=== PATIENT | male | born 1965 | race Caucasian/White ===

== ENCOUNTER 2017-07-11 18:59 | Inpatient (IN) | payer OTHER ==
[2017-07-11 20:35] VITALS: BMI 32.3
--- NOTE | 2017-07-11 21:48 | HP ---
CIWA Score - CIWA Score Nausea/Vomitin-No Nausea/No Vomiting Muscle Tremors: 4-Moderate,w/Arms Extend Anxiety: 4-Mod. Anxious/Guarded Paroxysmal Sweats: 3 Orientation: 1-Uncertain about Date Tacttile Disturbances: 0-None Auditory Disturbances: 4-Moderate Hallucination Visual Disturbances: 4-Moderate Hallucinations Headache: 0-None Present Admission ROS BHS - HPI Chief Complaint: SEEKING DETOX FOR ALCOHOLISM Allergies/Adverse Reactions: Allergies Allergy/AdvReac Type Severity Reaction Status Date / Time Shellfish Allergy Verified 08/08/15 05:07 History of Present Illness: 51 Y.O. MALE WITH ALCOHOLISM HERE FOR DETOX. CLIENT WAS REFERRED BY A FRIEND. STATES THIS IS HIS FIRST TIME IN SUBSTANCE ABUSE TXMENT. REPORTS LONGEST CLEAN TIME 6 MONTHS RELAPSING 4 WEEKS AGO. DENIES ANY LEGALS. Exam Limitations: No Limitations - Ebola screening Have you traveled outside of the country in the last 21 days: No Have you had contact with anyone from an Ebola affected area: No Have you been sick,other than usual withdrawal symptoms: No Do you have a fever: No - Review of Systems Constitutional: No Symptoms Reported EENT: reports: No Symptoms Reported Respiratory: reports: No Symptoms reported Cardiac: reports: No Symptoms Reported GI: reports: No Symptoms Reported : reports: No Symptoms Reported Musculoskeletal: reports: No Symptoms Reported Integumentary: reports: No Symptoms Reported Neuro: reports: No Symptoms reported Endocrine: reports: No Symptoms Reported Hematology: reports: No Symptoms Reported Psychiatric: reports: Anxious Other Systems: Reviewed and Negative Patient History - Patient Medical History Hx Anemia: No Hx Asthma: No Hx Chronic Obstructive Pulmonary Disease (COPD): No Hx Cancer: No Hx Cardiac Disorders: No Hx Congestive Heart Failure: No Hx Hypertension: No Hx Hypercholesterolemia: No Hx Pacemaker: No HX Cerebrovascular Accident: No Hx Seizures: No Hx Dementia: No Hx Diabetes: No Hx Gastrointestinal Disorders: Yes (RECTAL BLEEDING, GERD) Hx Liver Disease: Yes (ALCOHOLIC/NON-ALCOLHIC STEATOHEPATITIS) Hx Genitourinary Disorders: No Hx Renal Disease (ESRD): No Hx Thyroid Disease: No Hx Human Immunodeficiency Virus (HIV): No Hx Hepatitis C: No Hx Depression: No Hx Suicide Attempt: No Hx Bipolar Disorder: No Hx Schizophrenia: No Other Medical History: DENIES - Patient Surgical History Past Surgical History: Yes Hx Neurologic Surgery: No Hx Cataract Extraction: No Hx Cardiac Surgery: No Hx Lung Surgery: No Hx Breast Surgery: No Hx Breast Biopsy: No Hx Abdominal Surgery: No Hx Appendectomy: No Hx Cholecystectomy: No Hx Genitourinary Surgery: No Hx Section: No Hx Orthopedic Surgery: No Hx Hysterectomy: No Other Surgical History: TONSILLECTOMY Anesthesia Reaction: No - PPD History Previous Implant?: Yes Documented Results: Negative w/o proof Implanted On Prior [facility] Admission?: No PPD to be Administered?: Yes - Smoking Cessation Smoking history: Former smoker Have you smoked in the past 12 months: Yes Aproximately how many cigarettes per day: 4 (WEEKLY; ) Cigars Per Day: 0 Hx Chewing Tobacco Use: No Initiated information on smoking cessation: Yes 'Breaking Loose' booklet given: 07/11/17 - Substance & Tx. History Hx Alcohol Use: Yes Hx Substance Use: Yes Substance Use Type: Alcohol, Marijuana Hx Substance Use Treatment: No - Substances Abused BEER/ WHISKEY Route: Oral Frequency: 3-6 times per week Amount used: 2-SIX PACKS/ 1/2 PINT Age of first use: 12 Date of Last Use: 07/10/17 THC Route: Smoking Frequency: 3-6 times per week Amount used: 3 JOINTS Age of first use: 15 Date of Last Use: 07/10/17 Family Disease History - Family Disease History Family History: Denies Family Disease History: CA: Mother (SMALL INTESTINE; ) Admission Physical Exam BHS - Vital Signs Vital Signs: Vital Signs - 24 hr 07/11/17 20:33 Temperature 96.4 F L Pulse Rate 97 H Respiratory 18 Rate Blood Pressure 151/96 - Physical General Appearance: Yes: Appropriately Dressed, Mild Distress, Anxious HEENTM: Yes: EOMI, Normocephalic, JHOANA, Pharynx Normal Respiratory: Yes: Chest Non-Tender, Lungs Clear, Normal Breath Sounds, No Respiratory Distress, No Accessory Muscle Use Neck: Yes: No masses,lesions,Nodules, Supple, Trachea in good position Breast: Yes: Breast Exam Deferred Cardiology: Yes: Regular Rhythm, S1, S2, Tachycardia Abdominal: Yes: Normal Bowel Sounds, Non Tender, Soft, Protuberent Genitourinary: Yes: Within Normal Limits Back: Yes: Normal Inspection Musculoskeletal: Yes: full range of Motion, Gait Steady Extremities: Yes: Normal Capillary Refill, Normal Range of Motion, Non-Tender, Tremors Neurological: Yes: Alert, Motor Strength 5/5 Integumentary: Yes: Dry, Warm, Other (FLUSHED FACE) Lymphatic: Yes: Within Normal Limits - Diagnostic (1) Alcohol dependence with uncomplicated withdrawal Current Visit: Yes Status: Chronic (2) Nicotine dependence Current Visit: Yes Status: Chronic Qualifiers: Nicotine product type: cigarettes Substance use status: uncomplicated Qualified Code(s): F17.210 - Nicotine dependence, cigarettes, uncomplicated Cleared for Admission [facility] - Detox or Rehab [facility] Level of Care: Medically Managed Detox Regimen/Protocol: Librium [facility] Breath Alcohol Content Breath Alcohol Content: 0 Urine Drug Screen - Results Drug Screen Negative: No Urine Drug Screen Results: THC-Marijuana
[2017-07-11] MEDS ORDERED: guaiFENesin/D-METHORPHAN HB 10 ML UNIT-DOSE CUPS PO PRN (21:58)
[2017-07-11] MEDS ORDERED: IBUPROFEN 400 MG TABLET (FP) PO PRN (21:58)
[2017-07-11] MEDS ORDERED: ACETAMINOPHEN 325 MG TABLET (FP) PO PRN (21:58)
[2017-07-11] MEDS ORDERED: MAG HYDROX/AL HYDROX/SIMETH 30 ML UNIT-DOSE CUP PO PRN (21:58)
[2017-07-11] MEDS ORDERED: MAGNESIUM CITRATE 300 ML BOTTLE PO PRN (21:58)
[2017-07-11] MEDS ORDERED: P-EPHED 60MG/TRIPROLIDI 2.5MG TABLET PO PRN (21:58)
[2017-07-11] MEDS ORDERED: MAGNESIUM HYDROX 2400MG/30ML ORAL SUSPENSION 30 ML CUP PO PRN (21:58)
[2017-07-11] MEDS ORDERED: chlordiazePOXIDE HCL 25 MG CAPSULE PO PRN (21:58)
[2017-07-11] MEDS ORDERED: MENTHOL/PHENOL 1 EACH UD MM PRN (21:58)
[2017-07-11] MEDS ORDERED: NICOTINE POLACRILEX 4 MG GUM BC PRN (21:58)
[2017-07-11] MEDS ORDERED: LOPERAMIDE HCL 2 MG CAPSULE PO PRN (21:58)
[2017-07-11] MEDS: THIAMINE HCL 100 MG TABLET (FP) PO SCH (23:38)
[2017-07-11] MEDS: chlordiazePOXIDE HCL 25 MG CAPSULE PO SCH (23:38)
[2017-07-11] MEDS: hydrOXYzine PAMOATE 50 MG CAPSULE (FP) PO PRN (23:39)
[2017-07-12] MEDS: chlordiazePOXIDE HCL 25 MG CAPSULE PO SCH ×4 (05:35→22:13)
[2017-07-12 10:16] LABS: MCH 30.7 pg (25.7-33.7); MCHC 33.8 g/dl (32.0-35.9); MEAN CELL VOLUME 90.8 fl (80-96); MEAN PLT VOLUME 7.8 fl (7.5-11.1); PLATELET COUNT 328 K/MM3 (134-434); RDW 12.8 % (11.9-15.9); WHITE BLOOD COUNT 7.9 K/mm3 (4.0-10.0)
[2017-07-12 10:23] LABS: ALBUMIN 3.5 g/dl (3.4-5.0); BILIRUBIN,TOTAL 0.3 mg/dL (0.2-1.0); SGOT/AST 18 U/L (15-37); SGPT/ALT 23 U/L (12-78); TOT PROT 6.3 g/dl (6.4-8.2)
[2017-07-12] MEDS: PRENATAL VITAMINS W/ FOLIC ACID TABLET (FP) PO SCH (10:25)
[2017-07-12 10:26] LABS: ALK PHOS 107 U/L (45-117); ANION GAP 8 (8-16); CALCIUM 8.6 mg/dL (8.5-10.1); CO2 28 mmol/L (21-32); CREATININE 0.8 mg/dL (0.7-1.3); GLUCOSE,RANDOM 84 mg/dL (74-106)
[2017-07-12 10:48] LABS: URINE APPEARANCE CLEAR; URINE BILIRUBIN NEGATIVE (NEGATIVE); URINE BLOOD NEGATIVE (NEGATIVE); URINE COLOR LT. YELLOW; URINE GLUCOSE (UA) NEGATIVE (NEGATIVE); URINE KETONE 1+ (NEGATIVE); URINE NITRITE NEGATIVE (NEGATIVE); URINE PROTEIN NEGATIVE (NEGATIVE); URINE UROBILINOGEN 0.2 mg/dL (0.2-1.0)
--- NOTE | 2017-07-12 11:41 | PN ---
[facility] CIWA - CIWA Score Nausea/Vomitin-No Nausea/No Vomiting Muscle Tremors: 3 Anxiety: 5 Agitation: 1-Slight > Activity Paroxysmal Sweats: 3 Orientation: 2-Disoriented Date<2 days Tacttile Disturbances: 2-Mild Itch/Numbness/Burn Auditory Disturbances: 0-None Visual Disturbances: 3-Moderate Sensitivity Headache: 0-None Present CIWA-Ar Total Score: 19 BHS Progress Note (SOAP) Subjective: Sweating, Fatigue, Tremors, Diarrhea, Body Aches. Objective: PT. A & O X 2 (UNCERTAIN ABOUT CURRENT DAY / DATE). NO ACUTE DISTRESS. 07/12/17 11:38 Vital Signs Temperature 96.3 F L 07/12/17 09:20 Pulse Rate 84 07/12/17 09:20 Respiratory Rate 18 07/12/17 09:20 Blood Pressure 127/84 07/12/17 09:20 O2 Sat by Pulse Oximetry (%) Laboratory Tests 07/11/17 07/12/17 07/12/17 00:00 07:00 07:00 WBC 7.9 RBC 4.78 Hgb 14.7 Hct 43.4 MCV 90.8 MCH 30.7 MCHC 33.8 RDW 12.8 Plt Count 328 MPV 7.8 Sodium 138 Potassium 3.7 Chloride 102 Carbon Dioxide 28 Anion Gap 8 BUN 8 Creatinine 0.8 Creat Clearance w eGFR > 60 Random Glucose 84 Calcium 8.6 Total Bilirubin 0.3 AST 18 ALT 23 Alkaline Phosphatase 107 Total Protein 6.3 L Albumin 3.5 Urine Color Lt. yellow Urine Appearance Clear Urine pH 7.0 Ur Specific [place] 1.025 Urine Protein Negative Urine Glucose (UA) Negative Urine Ketones 1+ H Urine Blood Negative Urine Nitrite Negative Urine Bilirubin Negative Urine Urobilinogen 0.2 LABS NOTED. RPR RESULT PENDING. 07/12/17 11:40 Assessment: 07/12/17 11:39 WITHDRAWAL SYMPTOMS. Plan: CONTINUE DETOX. INCREASE DAILY PO FLUID INTAKE. ENCOURAGE AMBULATION.
--- NOTE | 2017-07-12 12:49 | EKG ---
Test Reason : Blood Pressure : / mmHG Vent. Rate : 085 BPM Atrial Rate : 085 BPM P-R Int : 174 ms QRS Dur : 106 ms QT Int : 372 ms P-R-T Axes : 063 016 064 degrees QTc Int : 442 ms NORMAL SINUS RHYTHM NORMAL ECG NO PREVIOUS ECGS AVAILABLE Confirmed by ODESSA SOUSA, NYDIA ([id number]) on 07/12/2017 12:48:54 PM Referred By: Confirmed By:NYDIA SAXENA MD
--- NOTE | 2017-07-12 18:10 | CONSULT ---
[facility] Psychiatric Consult - Data Date of interview: 07/12/17 Admission source: [facility] Identifying data: First admission to [facility] for this 51 y/o male from [facility] ancestry seeking detox treatment on for alcohol dependence.Patient is ,a father of one,domiciled and employed. Substance Abuse History: Confirmed by patient in this interview.See [facility] report for details. Smoking history: Former smoker. Have you smoked in the past 12 months: Yes. Aproximately how many cigarettes per day: 4 (WEEKLY; ). Cigars Per Day: 0. Hx Chewing Tobacco Use: No. Initiated information on smoking cessation: Yes. 'Breaking Loose' booklet given: 07/11/17. - Substance & Tx. History. Hx Alcohol Use: Yes. Hx Substance Use: Yes. Substance Use Type: Alcohol, Marijuana. Hx Substance Use Treatment: No. - Substances Abused. BEER/ WHISKEY. Route: Oral. Frequency: 3-6 times per week. Amount used: 2- SIX PACKS/ 1/2 PINT. Age of first use: 12. Date of Last Use: 07/10/17. THC. Route: Smoking. Frequency: 3-6 times per week. Amount used: 3 JOINTS. Age of first use: 15. Date of Last Use: 07/10/17 Medical History: Steatosis,GERD and a history of tonsillectomy. Psychiatric History: Patient denies. Physical/Sexual Abuse/Trauma History: Patient denies. Additional Comment: Urine Drug Screen Results: THC-Marijuana.Noted. Mental Status Exam - Mental Status Exam Alert and Oriented to: Time, Place, Person Cognitive Function: Good Patient Appearance: Well Groomed Mood: Anxious, Hopeful Affect: Mood Congruent Patient Behavior: Fatigued, Appropriate, Cooperative Speech Pattern: Clear, Appropriate Voice Loudness: Normal Thought Process: Intact, Goal Oriented Thought Disorder: Not Present Hallucinations: Denies Suicidal Ideation: Denies Homicidal Ideation: Denies Insight/Judgement: Poor Sleep: Well Appetite: Good Muscle strength/Tone: Normal Gait/Station: Normal Psychiatric Findings - Problem List ([place] 1, 2,3) (1) Alcohol dependence with uncomplicated withdrawal Current Visit: Yes Status: Acute (2) Marihuana dependence Current Visit: Yes Status: Acute (3) Nicotine dependence Current Visit: Yes Status: Acute Qualifiers: Nicotine product type: cigarettes Substance use status: uncomplicated Qualified Code(s): F17.210 - Nicotine dependence, cigarettes, uncomplicated - Initial Treatment Plan Initial Treatment Plan: Psychoeducation.Detoxification.Support.Observation.
[2017-07-12 20:23] LABS: URINE LEUK ESTERASE Negative (NEGATIVE)
[2017-07-12] MEDS: THIAMINE HCL 100 MG TABLET (FP) PO SCH (22:13)
[2017-07-12] MEDS: hydrOXYzine PAMOATE 50 MG CAPSULE (FP) PO PRN (23:24)
[2017-07-13] MEDS: chlordiazePOXIDE HCL 25 MG CAPSULE PO SCH ×3 (05:32→17:22)
[2017-07-13] MEDS: PRENATAL VITAMINS W/ FOLIC ACID TABLET (FP) PO SCH (10:42)
--- NOTE | 2017-07-13 13:54 | PN ---
[facility] CIWA - CIWA Score Nausea/Vomitin-No Nausea/No Vomiting Muscle Tremors: 3 Anxiety: 5 Agitation: 4-Moderately Restless Paroxysmal Sweats: 3 Orientation: 0-Oriented Tacttile Disturbances: 2-Mild Itch/Numbness/Burn Auditory Disturbances: 0-None Visual Disturbances: 0-None Headache: 0-None Present CIWA-Ar Total Score: 17 BHS Progress Note (SOAP) Subjective: Tremors, anxious, Interrupted Sleep, Sweating. Patient reports that he feels anxious and "paranoid that medical receptionist biller are coming to get him." PATIENT DENIES AUDITORY / VISUAL HALLUCINATIONS. PATIENT DENIES SI / HI. Objective: PT. A & O X 3, OBSERVED AMBULATING ON UNIT. NO ACUTE DISTRESS. 07/13/17 13:52 Vital Signs Temperature 96.4 F L 07/13/17 13:23 Pulse Rate 77 07/13/17 13:23 Respiratory Rate 8 L 07/13/17 13:23 Blood Pressure 119/84 07/13/17 13:23 O2 Sat by Pulse Oximetry (%) Laboratory Tests 07/11/17 07/12/17 07/12/17 00:00 07:00 07:00 WBC 7.9 RBC 4.78 Hgb 14.7 Hct 43.4 MCV 90.8 MCH 30.7 MCHC 33.8 RDW 12.8 Plt Count 328 MPV 7.8 Sodium 138 Potassium 3.7 Chloride 102 Carbon Dioxide 28 Anion Gap 8 BUN 8 Creatinine 0.8 Creat Clearance w eGFR > 60 Random Glucose 84 Calcium 8.6 Total Bilirubin 0.3 AST 18 ALT 23 Alkaline Phosphatase 107 Total Protein 6.3 L Albumin 3.5 Urine Color Lt. yellow Urine Appearance Clear Urine pH 7.0 Ur Specific [place] 1.025 Urine Protein Negative Urine Glucose (UA) Negative Urine Ketones 1+ H Urine Blood Negative Urine Nitrite Negative Urine Bilirubin Negative Urine Urobilinogen 0.2 Ur Leukocyte Esterase Negative RPR Titer 07/12/17 07:00 WBC RBC Hgb Hct MCV MCH MCHC RDW Plt Count MPV Sodium Potassium Chloride Carbon Dioxide Anion Gap BUN Creatinine Creat Clearance w eGFR Random Glucose Calcium Total Bilirubin AST ALT Alkaline Phosphatase Total Protein Albumin Urine Color Urine Appearance Urine pH Ur Specific [place] Urine Protein Urine Glucose (UA) Urine Ketones Urine Blood Urine Nitrite Urine Bilirubin Urine Urobilinogen Ur Leukocyte Esterase RPR Titer Nonreactive LABS NOTED. Assessment: 07/13/17 13:53 WITHDRAWAL SYMPTOMS. Plan: CONTINUE DETOX. PSYCH CONSULT ORDERED FOR PATIENT.
--- NOTE | 2017-07-13 14:52 | PN ---
Psychiatric Progress Note Vital Signs: Vital Signs Period Temp Pulse Resp BP Sys/Jacobo Pulse Ox Last 24 Hr 96.1 F-98.1 F 61-106 8-18 105-140/65-86 Date of Session: 07/13/17 Chief Complaint:: "i'm paranoid." HPI: Notified by nursing staff to assess patient for paranoid ideation. chart reviewed. Pt. evaulated. Pt. reports thoughts of parania but stated it is due to withdrawal from beny. States it has happened to him in the past. Denies suicidal and homicidal ideation. No medication intervention needed at this time. Current Medications: Active Medications Generic Name Dose Route Start Last Admin Trade Name Freq PRN Reason Stop Dose Admin Acetaminophen 650 mg 07/11/17 21:58 Tylenol - PO Q4H PRN FEVER OR PAIN Al Hydroxide/Mg Hydroxide 30 ml 07/11/17 21:58 Mylanta Oral Suspension - PO Q6H PRN DYSPEPSIA Chlordiazepoxide HCl 25 mg 07/12/17 23:00 07/13/17 10:41 Librium - PO 07/13/17 17:01 25 mg [id number] STEVE Administration Chlordiazepoxide HCl 15 mg 07/13/17 23:00 Librium - PO 07/14/17 17:01 [id number] STEVE Chlordiazepoxide HCl 25 mg 07/11/17 21:58 Librium - PO 07/14/17 21:57 Q4H PRN WITHDRAWAL(CONT SUBST) Chlordiazepoxide HCl 10 mg 07/14/17 23:00 Librium - PO 07/15/17 17:01 [id number] STEVE Eucalyptus/Menthol/Phenol/Sorbitol 1 each 07/11/17 21:58 Cepastat Lozenge - MM Q4H PRN SORE THROAT Guaifenesin 10 ml 07/11/17 21:58 Robitussin Dm - PO Q6H PRN COUGH Hydroxyzine Pamoate 50 mg 07/11/17 21:58 07/12/17 23:24 Vistaril - PO 50 mg Q4H PRN Administration AGITATION Ibuprofen 400 mg 07/11/17 21:58 Motrin - PO Q6H PRN SEVERE PAIN Loperamide HCl 4 mg 07/11/17 21:58 Imodium - PO Q6H PRN DIARRHEA Magnesium Citrate 300 ml 07/11/17 21:58 Citroma - PO Q48H PRN CONSTIPATION Magnesium Hydroxide 30 ml 07/11/17 21:58 Milk Of Magnesia - PO DAILY PRN CONSTIPATION Nicotine Polacrilex 4 mg 07/11/17 21:58 Nicorette Gum - BC Q2H PRN NICOTINE REPLACEMENT RX Multivit/Folic Acid/Iron 1 tab 07/12/17 10:00 07/13/17 10:42 Vitamins (Sjr) - PO 1 tab DAILY STEVE Administration Pseudoephedrine/Triprolidine 1 combo 07/11/17 21:58 Actifed - PO TID PRN NASAL CONGESTION Thiamine HCl 100 mg 07/11/17 22:00 07/12/17 22:13 Vitamin B1 - PO 100 mg HS STEVE Administration Medication(s) Change(s): None. Mental Status Exam - Mental Status Exam Alert and Oriented to: Time, Place, Person Cognitive Function: Good Patient Appearance: Well Groomed Mood: Sad, Euthymic Affect: Mood Congruent Patient Behavior: Cooperative Speech Pattern: Clear Voice Loudness: Normal Thought Process: Goal Oriented Thought Disorder: Not Present, Being Controlled Hallucinations: Denies Suicidal Ideation: Denies Homicidal Ideation: Denies Insight/Judgement: Fair Sleep: Difficulty falling asleep Appetite: Fair Muscle strength/Tone: Normal Gait/Station: Normal Additional Comments: Continue to monitor. Psychiatric Treatment Plan - Problem List (1) Alcohol dependence with uncomplicated withdrawal Current Visit: Yes (2) Marihuana dependence Current Visit: Yes (3) Nicotine dependence Current Visit: Yes Qualifiers: Nicotine product type: cigarettes Substance use status: uncomplicated Qualified Code(s): F17.210 - Nicotine dependence, cigarettes, uncomplicated (4) Substance induced mood disorder Current Visit: Yes Initial treatment plan: Continue to monitor patient.
[2017-07-13] MEDS: THIAMINE HCL 100 MG TABLET (FP) PO SCH (22:27)
[2017-07-13] MEDS: chlordiazePOXIDE 5 MG CAPSULE PO SCH (22:27)
[2017-07-13] MEDS: hydrOXYzine PAMOATE 50 MG CAPSULE (FP) PO PRN (22:28)
[2017-07-14] MEDS: chlordiazePOXIDE 5 MG CAPSULE PO SCH ×3 (05:45→17:25)
[2017-07-14] MEDS: PRENATAL VITAMINS W/ FOLIC ACID TABLET (FP) PO SCH (10:40)
--- NOTE | 2017-07-14 13:10 | PN ---
BHS Progress Note (SOAP) Subjective: Anxious, Sweating. Objective: PT. A & O X 3, OBSERVED AMBULATING ON UNIT. NO ACUTE DISTRESS. 07/14/17 13:08 Vital Signs Temperature 97.0 F L 07/14/17 10:00 Pulse Rate 93 H 07/14/17 10:00 Respiratory Rate 18 07/14/17 10:00 Blood Pressure 119/82 07/14/17 10:00 O2 Sat by Pulse Oximetry (%) Laboratory Tests 07/11/17 07/12/17 07/12/17 00:00 07:00 07:00 WBC 7.9 RBC 4.78 Hgb 14.7 Hct 43.4 MCV 90.8 MCH 30.7 MCHC 33.8 RDW 12.8 Plt Count 328 MPV 7.8 Sodium 138 Potassium 3.7 Chloride 102 Carbon Dioxide 28 Anion Gap 8 BUN 8 Creatinine 0.8 Creat Clearance w eGFR > 60 Random Glucose 84 Calcium 8.6 Total Bilirubin 0.3 AST 18 ALT 23 Alkaline Phosphatase 107 Total Protein 6.3 L Albumin 3.5 Urine Color Lt. yellow Urine Appearance Clear Urine pH 7.0 Ur Specific [place] 1.025 Urine Protein Negative Urine Glucose (UA) Negative Urine Ketones 1+ H Urine Blood Negative Urine Nitrite Negative Urine Bilirubin Negative Urine Urobilinogen 0.2 Ur Leukocyte Esterase Negative RPR Titer 07/12/17 07:00 WBC RBC Hgb Hct MCV MCH MCHC RDW Plt Count MPV Sodium Potassium Chloride Carbon Dioxide Anion Gap BUN Creatinine Creat Clearance w eGFR Random Glucose Calcium Total Bilirubin AST ALT Alkaline Phosphatase Total Protein Albumin Urine Color Urine Appearance Urine pH Ur Specific [place] Urine Protein Urine Glucose (UA) Urine Ketones Urine Blood Urine Nitrite Urine Bilirubin Urine Urobilinogen Ur Leukocyte Esterase RPR Titer Nonreactive LABS NOTED. Assessment: 07/14/17 13:08 WITHDRAWAL SYMPTOMS. Plan: CONTINUE DETOX. INCREASE DAILY POI FLUID INTAKE.
[2017-07-14] MEDS: THIAMINE HCL 100 MG TABLET (FP) PO SCH (22:16)
[2017-07-14] MEDS: hydrOXYzine PAMOATE 50 MG CAPSULE (FP) PO PRN (22:16)
[2017-07-14] MEDS: chlordiazePOXIDE HCL 10 MG CAPSULE PO SCH (22:16)
[2017-07-15] MEDS: chlordiazePOXIDE HCL 10 MG CAPSULE PO SCH (05:21)
[2017-07-15 06:25] VITALS: BP 103/61; PULSE 73; TEMP 97.9
--- NOTE | 2017-07-15 16:12 | DS ---
[facility] Detox Discharge Summary Admission Date: 07/11/17 Discharge Date: 07/15/17 - History Present History: Alcohol Dependence, Cannabis Dependence Additional Comments: PATIENT ADVISED TO CONSIDER LOCAL 12-STEP / AA OUTPATIENT SUPPORT GROUP MEETINGS FOR AFTERCARE. PATIENT WAS DISCHARGED FROM DETOX UNIT IN STABLE MEDICAL CONDITION. Pertinent Past History: Nicotine Dependence, GERD, History of Rectal Bleeding, Steatohepatitis. - Physical Exam Results Vital Signs: Vital Signs Temperature 97.9 F 07/15/17 06:24 Pulse Rate 73 07/15/17 06:24 Respiratory Rate 18 07/15/17 06:24 Blood Pressure 103/61 07/15/17 06:24 O2 Sat by Pulse Oximetry (%) Pertinent Admission Physical Exam Findings: WITHDRAWAL SYMPTOMS. Laboratory Tests 07/11/17 07/12/17 07/12/17 00:00 07:00 07:00 WBC 7.9 RBC 4.78 Hgb 14.7 Hct 43.4 MCV 90.8 MCH 30.7 MCHC 33.8 RDW 12.8 Plt Count 328 MPV 7.8 Sodium 138 Potassium 3.7 Chloride 102 Carbon Dioxide 28 Anion Gap 8 BUN 8 Creatinine 0.8 Creat Clearance w eGFR > 60 Random Glucose 84 Calcium 8.6 Total Bilirubin 0.3 AST 18 ALT 23 Alkaline Phosphatase 107 Total Protein 6.3 L Albumin 3.5 Urine Color Lt. yellow Urine Appearance Clear Urine pH 7.0 Ur Specific [place] 1.025 Urine Protein Negative Urine Glucose (UA) Negative Urine Ketones 1+ H Urine Blood Negative Urine Nitrite Negative Urine Bilirubin Negative Urine Urobilinogen 0.2 Ur Leukocyte Esterase Negative RPR Titer 07/12/17 07:00 WBC RBC Hgb Hct MCV MCH MCHC RDW Plt Count MPV Sodium Potassium Chloride Carbon Dioxide Anion Gap BUN Creatinine Creat Clearance w eGFR Random Glucose Calcium Total Bilirubin AST ALT Alkaline Phosphatase Total Protein Albumin Urine Color Urine Appearance Urine pH Ur Specific [place] Urine Protein Urine Glucose (UA) Urine Ketones Urine Blood Urine Nitrite Urine Bilirubin Urine Urobilinogen Ur Leukocyte Esterase RPR Titer Nonreactive LABS NOTED. - Treatment Hospital Course: Detox Protocol Followed, Detoxed Safely, Responded well, Discharged Condition Good Patient has Accepted a Rehab Referral to: PT. ADVISED TO CONSIDER LOCAL 12-STEP / AA SUPPORT GROUP MEETINGS. - Medication Discharge Medications: Ambulatory Orders NK [No Known Home Medication] 07/14/17 - Diagnosis (1) Alcohol dependence with uncomplicated withdrawal Status: Acute (2) Marihuana dependence Status: Acute (3) Nicotine dependence Status: Acute Qualifiers: Nicotine product type: cigarettes Substance use status: uncomplicated Qualified Code(s): F17.210 - Nicotine dependence, cigarettes, uncomplicated - AMA Did Patient Leave Against Medical Advice: No
== END 2017-07-15 08:59 | disposition home or self-care (01) | DRG 897 ==
LOC: YASAS 18:59 → Y3N 22:09
PROVIDERS: ADMIT Internal Medicine; ATTEND Internal Medicine
PROC: HZ2ZZZZ Detoxification Services for Substance Abuse Treatment (ICD-10-PCS; principal; 2017-07-11)
DX: F10.230 Alcohol dependence with withdrawal, uncomplicated (principal); F12.20 Cannabis dependence, uncomplicated; F17.210 Nicotine dependence, cigarettes, uncomplicated; F19.24 Other psychoactive substance dependence with psychoactive substance-induced mood disorder; L25.9 Unspecified contact dermatitis, unspecified cause
CPT/HCPCS: 36415; 80053; 81003; 85027; 86593; 93005; 93010